=== PATIENT | female | born 2005 | race Caucasian/White ===

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

== ENCOUNTER 2025-01-17 17:56 | Emergency (ER) | payer BC, SELFPAY ==
[2025-01-17 18:02] VITALS: BP 117/70; PULSE 88; RESP 18; TEMP 36.7; O2SAT 100
--- NOTE | 2025-01-17 18:13 | ED.FEVER ---
HPI - Fever General Chief Complaint: Unspecified Stated Complaint: Flu Like / LT Leg insect bite Patient presents to the [facility] accompanied by mother with complaints of the chest tightness and wheezing 4 days ago this was completely resolved with using her albuterol inhaler at home then the next 2 days after that had significant fatigue, and then yesterday reports that overall she was feeling better but today felt significantly worse with fatigue and feeling flushed like she had a fever. Noted patient did take her temperature this morning and did not have a fever but did take some ibuprofen after taking temperature and did feel slightly better. Patient does also note over the last couple days did have a bite of some kind to the top of left thigh that yesterday was very firm and warm to touch today it is flatter but the area of redness is larger. Denies drainage from the area, dizziness, headache, cough, sore throat, ear pain, nasal congestion Related Data Allergies Allergy/AdvReac Type Severity Reaction Status Date / Time No Known Allergies Allergy Verified 11/19/24 09:15 Review of Systems Constitutional: Constitutional: Reports as per HPI, Denies chills, Reports fatigue and Denies fever(s) Comments: feeling flushed Eyes: Eyes: Reports no additional eye complaints ENT: Reports as per HPI, Denies vertigo, Denies dizziness, Denies epistaxis, Denies nasal congestion and Denies sore throat Cardiovascular: Cardiovascular: Reports as per HPI Respiratory: Respiratory: Reports as per HPI, Denies chest congestion, Denies cough, Reports dyspnea and Reports wheezing Gastrointestinal: Gastrointestinal: Reports as per HPI, Denies abdominal pain, Denies diarrhea, Denies nausea and Denies vomiting Genitourinary: Genitourinary: Reports no additional female genitourinary complaints Musculoskeletal: Musculoskeletal: Reports as per HPI, Denies myalgias, Denies arthralgias, Denies joint swelling and Denies muscle cramps Integumentary/Breasts: Skin/Breast: Reports as per HPI, Reports erythema and Denies rash Comments: bite top of left thigh Neurologic: Reports as per HPI, Denies vertigo, Denies dizziness, Denies headache(s), Denies focal weakness and Denies weakness Psychiatric: Psychiatric: Reports no additional psychiatric complaints Endocrine: Endocrine: Reports no additional endocrine complaints Hematologic/Lymphatic: Hematologic/Lymphatic: Reports no additional hematologic/lymphatic complaints Allergic/Immunologic: Allergic/Immunologic: Reports no additional allergic/immunologic complaints COUNTS INCLUDE 234 BEDS AT THE [facility] Past Medical History Medical History (Updated 01/17/25 @ 18:29 by ТАТЬЯНА Reyes) Chronic sinusitis Acute sinusitis Surgical History Surgical History (Updated 11/19/24 @ 09:29 by Kamila Duran APRN) H/O brain surgery age 8 Social History Social History Smoking status: Never smoker Exam Const: General: healthy appearing and no acute distress Nutritional Appearance: well nourished Orientation/consciousness: patient oriented x3 Limitations: no limitations HENMT: Head: normal to inspection Ears: external ears normal and TM's normal bilaterally Face/Nose/Sinus: Normal external nose present and Normal nares present Face and sinus: normal facial exam and sinuses nontender Mouth: Yes Normal oral and palatal mucosa present, Yes lip normal and Yes moist mucous membranes Throat: posterior oropharynx normal Neck: Neck: normal visual inspection and no lymphadenopathy Resp: Effort & Inspection: normal respiratory effort Auscultation: clear to auscultation bilaterally Cardio: Rate: regular rate Rhythm: regular rhythm Back/Spine/Pelvis: Back: no CVA tenderness Skin: Rashes: no rashes Other: circular area of erythema 4 cm in diameter with center puncture wound consistent with insect bite. Area warm to touch with minimal swelling. No active drainage or crusting Neuro: General: patient oriented x3 and moves all extremities Speech: normal speech Gait exam (Neuro): Normal gait present Extrem: General: no clubbing, cyanosis or edema and no pedal edema Psych: Appearance: grossly normal Mental Status: mental status grossly normal Affect: normal affect Attitude: cooperative Course Course Level of Care: Express Care Visit Vital Signs Vital signs: Vital Signs Temperature 98.1 F 01/17/25 18:02 Pulse Rate 88 01/17/25 18:02 Respiratory Rate 18 01/17/25 18:02 Blood Pressure 117/70 01/17/25 18:02 Pulse Oximetry 100 01/17/25 18:02 Temperature 98.1 F 01/17/25 18:02 Pulse Rate 88 01/17/25 18:02 Respiratory Rate 18 01/17/25 18:02 Blood Pressure 117/70 01/17/25 18:02 Pulse Oximetry 100 01/17/25 18:02 MDM - Fever MDM Narrative Medical decision making narrative: flu and COVID testing completed in Express Care today. Likely related to a cellulitis from insect bite The patient was evaluated by myself in the express care. History is obtained from patient who is an independent historian and physical exam was performed. Available medical records were reviewed at this time. Exam findings show no acute concerns or changes; patient is non-toxic appearing and is in no distress. Patient is appropriate for outpatient treatment and follow-up. I have evaluated and discussed social determinants of health with the patient that could potentially impact subsequent diagnosis and treatment plans. Differential diagnosis and treatment plan were discussed with the patient. Patient agrees with discussion and after shared medical decision making agrees with plan of care. All questions were answered to the patient's satisfaction. Differential Diagnosis Differential diagnosis: Likely cellulitis, fever of unknown origin, pyelonephritis, viral infection and influenza Medical Records Attestation: I reviewed the patient's medical records. Lab Data Attestation: I reviewed the patient's lab results. Discharge Plan Discharge Clinical Impression: Cellulitis of left leg Patient Disposition: Home Condition: Stable Instructions: Antibiotic Form, Cellulitis (ED) Additional Instructions: Clean with soap and water only; Avoid using alcohol and peroxide. Elevate the affected area if possible Alternate Tylenol/ibuprofen for as needed for pain Acetaminophen(Tylenol) 650-1000mg every 4-6hours with max of 4000mg/day. Nonsteroidal anti-inflammatory agent (NSAIDs-ibuprofen): 400mg every 4-6hours with max 2400mg/day Take antibiotic until it's gone. Please schedule a follow up visit with your personal physician for further evaluation and treatment within 3-5days OR if your symptoms persist, change or worsen significantly before you can contact your personal physician then please, without delay, go to the emergency department for further evaluation. Patient Language: Wallisian Prescriptions: New cephalexin 500 mg capsule 500 mg PO Q12H Qty: 20 0RF triamcinolone acetonide 0.1 % cream 1 applic topical TID PRN (Reason: itching) Qty: 80 0RF Follow-up/Referrals: Erich,Sandhya Chau MD [Primary Care Provider] Time of Disposition: 18:30
[2025-01-17 18:31] LABS: EDCOVIDSCREEN Negative (Negative); EDINFLUASCREEN Negative (Negative); EDINFLUBSCREEN Negative (Negative)
== END 2025-01-17 18:35 | disposition home or self-care (01) ==
PROVIDERS: Emergency Provider Nurse Practitioner Family; PCP Pediatrics Adolescent Medicine
DX: L03.116 Cellulitis of left lower limb (principal); Z20.822 Contact with and (suspected) exposure to COVID-19
CPT/HCPCS: 87426; 87804; 99213; G0463

== ENCOUNTER 2025-02-09 18:38 | Emergency (ER) | payer BC, SELFPAY ==
--- NOTE | 2025-02-09 18:41 | ED_ITS ---
HPI - URI/Sore Throat General Chief Complaint: Upper Respiratory Infection Stated Complaint: weak/sore throat Time Seen by Provider: 02/09/25 18:39 Source: patient Mode of arrival: ambulatory Limitations: no limitations History of Present Illness HPI Narrative: Patient is a 19-year-old female presenting with her mother for complaint of fatigue, sore throat and abdominal cramping for 3 days and diarrhea and low-gr amando fever of 100 ? F started today. Patient denies any congestion, cough, ear pain, nausea, vomiting. Patient has taken Pepto and ibuprofen. Mother's concern for possible mono due to severity of fatigue. Patient had mono as a child Related Data Allergies Allergy/AdvReac Type Severity Reaction Status Date / Time No Known Allergies Allergy Verified 02/09/25 18:54 Review of Systems Review of Systems: All systems reviewed & are unremarkable except as noted in HPI and below Constitutional: Constitutional: Denies chills, Reports fatigue, Reports fever(s), Denies headache(s), Denies malaise and Denies weakness Eyes: Eyes: Denies blurry vision, Denies itchy eyes and Denies loss of vision ENT: Denies otalgia, Denies headache(s), Denies nasal congestion, Denies sinus pain and Reports sore throat Cardiovascular: Cardiovascular: Denies chest pain, Denies irregular heart rhythm and Denies dyspnea Respiratory: Respiratory: Denies cough and Denies dyspnea Gastrointestinal: Gastrointestinal: Reports abdominal pain, Reports diarrhea, Denies nausea and Denies vomiting Musculoskeletal: Musculoskeletal: Denies back pain, Denies myalgias and Denies arthralgias Integumentary/Breasts: Skin/Breast: Denies pruritus and Denies rash Neurologic: Denies headache(s), Denies loss of vision and Denies weakness Psychiatric: Psychiatric: Reports no additional psychiatric complaints Endocrine: Endocrine: Denies fatigue Allergic/Immunologic: Allergic/Immunologic: Denies itchy eyes PMFSH Past Medical History Medical History Chronic sinusitis Acute sinusitis Surgical History Surgical History H/O brain surgery age 8 Comments At time of signature, agree with nursing past medical, surgical, social and family history. There is no relevant family history pertinent to the presenting complaint. Exam Const: General: cooperative, healthy appearing, comfortable, no acute distress and well nourished Nutritional Appearance: well nourished Orientation/consciousness: patient oriented x3 Limitations: no limitations HENMT: Head: normal to inspection, normocephalic and atraumatic Ears: hearing grossly normal bilaterally, external ears normal, TM's normal bilaterally, EAC's normal and no periauricular adenopathy Face/Nose/Sinus: Normal external nose present, Abnormal mucous membranes and turbinates present erythematous bilateral and diffuse, normal facial exam, sinuses nontender and face symmetric Face and sinus: normal facial exam, sinuses nontender and face symmetric Mouth: Yes Normal oral and palatal mucosa present, Yes lip normal, Yes tongue normal, Yes Normal salivary glands and ducts present, Yes oropharynx normal and Yes moist mucous membranes Teeth and gingiva: dentition normal Throat: posterior oropharynx normal, tonsils normal and uvula midline Eyes: General: appearance normal, both eyes and all related structures Alignment and Position: alignment normal and position normal Periorbital: periorbital findings normal Eyelids: eyelids normal Pupils: Equal, round and reactive pupils present Neck: Neck: normal visual inspection, full ROM, no lymphadenopathy and supple Chest: Chest palpation & inspection: normal inspection of the chest and normal palpation of entire chest wall Resp: Effort & Inspection: normal respiratory effort and able to speak in complete sentences Auscultation: clear to auscultation bilaterally, no crackles, no rales, no rhonchi and no wheezes Cardio: Rate: tachycardic Rhythm: regular rhythm Heart sounds: S1 normal heart sound present and S2 normal heart sound present GI: Inspection: normal to inspection GI Palp: No abdominal tenderness, Yes Soft to palpation, No Tenderness to palpation present (GI) and No Guarding due to palpation present (GI) Auscultation: normal bowel sounds Rectal Exam: deferred Skin: General skin exam: normal color and no rashes or lesions noted Neuro: General: patient oriented x3 and moves all extremities Cranial nerves: Yes Equal, round and reactive pupils present Speech: normal speech Gait exam (Neuro): Normal gait present Extrem: General: normal to inspection, full ROM and no edema Psych: Appearance: grossly normal and well kempt Mental Status: mental status grossly normal Speech and movement: Normal speech and movement present Affect: normal affect Attitude: cooperative Thought process: Normal thought process present Course Course Emergency Course: Discharge instructions reviewed with patient, as well as provided in writing per nursing staff. The instructions also include specific and strict return/GO TO THE ER as well as f/u information. All questions have been answered, and the patient deny any further questions with discharge and discharge plan. Portions of this record may have been created with voice recognition software Level of Care: Express Care Visit Vital Signs Vital signs: Vital Signs Temperature 36.9 C 02/09/25 18:44 Pulse Rate 115 H 02/09/25 18:44 Respiratory Rate 16 02/09/25 18:44 Blood Pressure 119/71 02/09/25 18:44 Pulse Oximetry 100 02/09/25 18:44 Oxygen Delivery Room Air 02/09/25 18:44 Temperature 36.9 C 02/09/25 18:44 Pulse Rate 115 H 02/09/25 18:44 Respiratory Rate 16 02/09/25 18:44 Blood Pressure 119/71 02/09/25 18:44 Pulse Oximetry 100 02/09/25 18:44 Oxygen Delivery Room Air 02/09/25 18:44 Reviewed MDM - URI/Sore Throat MDM Narrative Medical decision making narrative: Discuss transfer to emergency department for abdominal pain complaint, patient declined. Patient states it is tolerable and abdominal exam was normal. Pt well hydrated appearing, in no respiratory distress, hemodynamically stable. Recommend supportive care. The patient is stable at time of discharge the clinical impression was discussed and the patient was given the opportunity to ask questions, which were addressed as completely as possible given the information available at present. Anticipatory guidance and return to care precautions were discussed and the importance of primary care follow-up was stressed and encouraged. The patient voiced understanding of the plan, indications to return, and the need for follow-up. Exam findings show no acute concerns or changes Patient is appropriate for outpatient treatment and follow-up. Differential diagnosis considered: Gallego virus, strep pharyngitis, allergic rhinitis, upper respiratory tract infection, sinusitis, rhinosinusitis, nasopharyngitis. viral pharyngitis, otitis media, otitis externa, otitis effusion, foreign body, cerumen impaction, viral syndrome, and influenza.? Medical Records Attestation: I reviewed the patient's medical records. Lab Data Attestation: I reviewed the patient's lab results. Labs: Lab Results 02/09/25 02/09/25 02/09/25 Range/Units 19:02 19:09 19:28 POC Monoscreen Negative (Negative) POC Influenza A Ag Negative (Negative) POC Influenza B Ag Negative (Negative) POC SARS CoV-2 Ag Negative (Negative) POC Grp A Strep Screen Negative (Negative) Discharge Plan Discharge Clinical Impression: Viral infection Patient Disposition: Home Condition: Stable Instructions: Viral Syndrome (ED) Additional Instructions: Your rapid strep swab was negative today at [facility]. A throat culture will be sent to the laboratory for further testing. If the test is positive, you will receive a phone call within 48 hours and an appropriate antibiotic will be initiated at that time. Your Covid, Flu and [place] are all negative. Take Bentyl as prescribed for abdominal cramping Your symptoms are likely due to a viral illness, which is not treated with antibiotics. Viral symptoms can be present for up to a few weeks. -For pain/fever, you may take: Tylenol 650-1000mg by mouth every 4-6 hours. Do not exceed 4000mg in 24 hours. Advil (Ibuprofen) 600 mg by mouth every 6 hours. Do not exceed 2400mg in 24 hours. 8 AM: Tylenol 11 AM: Ibuprofen 2 PM: Tylenol 5 PM: Ibuprofen 8 PM: Tylenol 11 PM: Ibuprofen 2 AM: Tylenol 5 AM: Ibuprofen -Antihistamine medication such as Benadryl/Zyrtec at night and Claritin/Randa during the day can help improve symptoms. -Use Flonase twice a day for 5 days then daily to help reduce the inflammation and dry up your sinuses. -You can also use Sudafed behind the pharmacy counter(12 or 24 hour). Be sure to drink plenty of water with these medications at least 8 ounces with every dose and it is important to drink 8 to 10 glasses of water per day. Water is a natural decongestant -Eat and drink things that are easy to swallow, like tea or soup, or popsicles. -Oral rinses such as: Salt water gargles and/or may use topical anesthetic (eg. Chloraseptic spray) or lozenges to relieve dryness or throat pain). -Frequent hand washing or hand roof bolting coal miner is one of the best ways to prevent spread of infection. -Using a vaporizer or humidifier at night will also help thin secretions and help with coughing up phlegm. Call your Primary Care Doctor and make a follow-up appointment in 3 days. If your cough worsens, you develop a fever greater than 103, you develop shaking chills, a fast heartbeat, trouble breathing and/or feel you are are breathing much faster than usual, call your Primary Care Doctor or go to the ER. Patient Language: Scottish Prescriptions: New dicyclomine 20 mg tablet 20 mg PO QID 7 Days Qty: 28 0RF Follow-up/Referrals: Erich,Sandhya Chau MD [Primary Care Provider] - 3 Days Time of Disposition: 19:31
[2025-02-09 18:44] VITALS: BP 119/71; PULSE 115; RESP 16; TEMP 36.9; O2SAT 100
[2025-02-09 19:03] LABS: EDSTREPNEGPOS1 Negative (Negative)
[2025-02-09 19:11] LABS: EDCOVIDSCREEN Negative (Negative); EDINFLUASCREEN Negative (Negative); EDINFLUBSCREEN Negative (Negative)
[2025-02-09 19:30] LABS: EDMONONEGPOS Negative (Negative)
== END 2025-02-09 19:36 | disposition home or self-care (01) ==
PROVIDERS: Emergency Provider Nurse Practitioner Family; PCP Pediatrics Adolescent Medicine
DX: B34.9 Viral infection, unspecified (principal); Z20.822 Contact with and (suspected) exposure to COVID-19
CPT/HCPCS: 36416; 86308; 87081; 87426; 87804; 87880; 99213; G0463

== ENCOUNTER 2025-03-23 11:05 | Emergency (ER) | payer BC, SELFPAY ==
[2025-03-23 11:10] VITALS: BP 109/69; PULSE 128; RESP 18; TEMP 37; O2SAT 99
--- NOTE | 2025-03-23 11:19 | ED_ITS ---
HPI - URI/Sore Throat General Chief Complaint: Upper Respiratory Infection Stated Complaint: Flu Like Source: patient and family Mode of arrival: ambulatory Limitations: no limitations History of Present Illness HPI Narrative: This is a 19 y/o female that presents to the urgent care with 2 day history of cough, sore throat, body aches, headache and fatigue. Patient does report exposure to influenza A by several direct family members and at [employer]. Patient reports taking OTC cough and cold medication that does improve symptoms slightly. She denies any nausea vomiting or diarrhea denies any chest pain christian rtness a breath. She denies any other distress or concerns MD elicited complaint: fever, cough, sore throat, rhinorrhea, nasal congestion and sinus pain Onset (ago): day(s) (2) Consistency: constant Severity: mild Exacerbating factors: nothing Relieving factors: OTC cold medicine Context: sick contacts Associated symptoms: denies other symptoms Treatments prior to arrival: acetaminophen and cold medicine Related Data Home Medications ?Medication ?Instructions ?Recorded ?Confirmed ?Last Taken ?Type No Home Medications 03/23/25 03/23/25 U nknown History Allergies Allergy/AdvReac Type Severity Reaction Status Date / Time No Known Allergies Allergy Verified 03/23/25 11:10 PMFSH Past Medical History Medical History Chronic sinusitis Acute sinusitis Surgical History Surgical History H/O brain surgery age 8 Social History Social History Smoking status: Never smoker Exam Const: General: ill appearing Nutritional Appearance: well nourished Orientation/consciousness: patient oriented x3 Limitations: no limitations HENMT: Head: normal to inspection Ears: TM abnormal bulging Face/Nose/Sinus: Nasal discharge present mucoid Face and sinus: sinus tenderness maxillary Mouth: Yes Normal oral and palatal mucosa present Teeth and gingiva: dentition normal Throat: posterior oropharynx normal Eyes: Conjunctivae: conjunctivae normal Pupils: Equal, round and reactive pupils present EOM: EOMs intact bilaterally Neck: Neck: normal visual inspection and no lymphadenopathy Chest: Chest palpation & inspection: normal inspection of the chest Resp: Effort & Inspection: normal respiratory effort Auscultation: clear to auscultation bilaterally Cardio: Rate: regular rate Rhythm: regular rhythm GI: GI Palp: Yes Soft to palpation Auscultation: normal bowel sounds Skin: General skin exam: normal color Rashes: no rashes Wounds: no wounds Neuro: General: patient oriented x3, moves all extremities, no meningeal signs, no focal motor deficits and CN's II-XI intact bilaterally Cranial nerves: Yes Nystagmus not present Speech: normal speech Gait exam (Neuro): Normal gait present Psych: Mental Status: mental status grossly normal Affect: normal affect Attitude: cooperative Course Course Emergency Course: This is a 19 y/o female that presents to the urgent care with 2 day history of cough, sore throat, body aches, headache and fatigue. Patient does report exposure to influenza A by several direct family members and at [employer]. Patient reports taking OTC cough and cold medication that does improve symptoms slightly. She denies any nausea vomiting or diarrhea denies any chest pain shortness a breath. She denies any other distress or concerns vitals stable Influenza A&B, COVID ordered Influenza A positive. COVID negative strep negative Follow with primary. Continue with outpatient management. Answered her mother and patient's questions to their satisfaction they are agreeable with this plan. Educated to Increase fluids, rest, symptomatic management: - cough and cold medication per package instructions- cough drops for sore throat and cough- vicks vapor rub- tylenol and motrin for fever and body aches- soft bland foods. follow-up with primary care chronic 2-3 days for further evaluation and exam. - you are contagious so avoid any crowds, immunocompromised people, infants or elderly. they verbalized understanding they are agreeable to plan. They denied any further needs or concerns to be addressed prior to discharge. Level of Care: Express Care Visit Vital Signs Vital signs: Vital Signs Temperature 98.6 F 03/23/25 11:10 Pulse Rate 128 H 03/23/25 11:10 Respiratory Rate 18 03/23/25 11:10 Blood Pressure 109/69 03/23/25 11:10 Pulse Oximetry 99 03/23/25 11:10 Oxygen Delivery Room Air 03/23/25 11:10 Temperature 98.6 F 03/23/25 11:10 Pulse Rate 128 H 03/23/25 11:10 Respiratory Rate 18 03/23/25 11:10 Blood Pressure 109/69 03/23/25 11:10 Pulse Oximetry 99 03/23/25 11:10 Oxygen Delivery Room Air 03/23/25 11:10 [facility] Narrative Medical decision making narrative: This is a 19 y/o female that presents to the urgent care with 2 day history of cough, sore throat, body aches, headache and fatigue. Patient does report exposure to influenza A by several direct family members and at [employer]. Patient reports taking OTC cough and cold medication that does improve symptoms slightly. She denies any nausea vomiting or diarrhea denies any chest pain shortness a breath. She denies any other distress or concerns vitals stable Influenza A&B, COVID ordered Influenza A positive. COVID negative strep negative Follow with primary. Continue with outpatient management. Answered her mother and patient's questions to their satisfaction they are agreeable with this plan. Educated to Increase fluids, rest, symptomatic management: - cough and cold medication per package instructions- cough drops for sore throat and cough- vicks vapor rub- tylenol and motrin for fever and body aches- soft bland foods. follow-up with primary care chronic 2-3 days for further evaluation and exam. - you are contagious so avoid any crowds, immunocompromised people, infants or elderly. they verbalized understanding they are agreeable to plan. They denied any further needs or concerns to be addressed prior to discharge. Differential Diagnosis Differential Diagnosis: influenza A positive influenza B negative covid negative strep negative Medical Records I have reviewed the following patient records and this information was taken into consideration when formulating the assessment and plan.: previous labs and previous clinic visits Lab Data [facility] Lab Attestation statement: I personally reviewed the patient's lab results. Labs: Lab Results 03/23/25 03/23/25 03/23/25 Range/Units 11:21 11:25 11:33 POC Influenza A Ag Positive (Negative) POC Influenza B Ag Negative (Negative) POC SARS CoV-2 Ag Negative (Negative) POC Grp A Strep Screen Negative (Negative) Discharge Plan Discharge Clinical Impression: Influenza Patient Disposition: Home Condition: Stable Instructions: Influenza (ED) Additional Instructions: Increase fluids rest symptomatic management: - cough and cold medication per package instructions - cough drops for sore throat and cough - vicks vapor rub - tylenol and motrin for fever and body aches - soft bland foods follow-up with primary care chronic 2-3 days for further evaluation and exam -you are contantagious so avoid any crowds, immunocompromised people, infants or elderly. Patient Language: Turkish Prescriptions: No Action No Home Medications Follow-up/Referrals: Erich,Sandhya Chau MD [Primary Care Provider] Time of Disposition: 11:34
[2025-03-23 11:22] LABS: EDINFLUASCREEN Positive (Negative); EDINFLUBSCREEN Negative (Negative)
[2025-03-23 11:27] LABS: EDCOVIDSCREEN Negative (Negative)
[2025-03-23 11:35] LABS: EDSTREPNEGPOS1 Negative (Negative)
== END 2025-03-23 11:43 | disposition home or self-care (01) ==
PROVIDERS: Emergency Provider Nurse Practitioner Family; PCP Pediatrics Adolescent Medicine
DX: J10.1 Influenza due to other identified influenza virus with other respiratory manifestations (principal); Z20.822 Contact with and (suspected) exposure to COVID-19
CPT/HCPCS: 87426; 87804; 87880; 99212; G0463